=== PATIENT | female | born 1995 | race Caucasian/White ===

== ENCOUNTER 2018-04-23 15:53 | Outpatient (CLI) | payer OTHER, MEDICAID | END 2018-04-23 17:52 | disposition home or self-care (01) | LOC: OBT 15:53 → L-D 15:54 → OBT 17:52 | DX: O36.5930 Maternal care for other known or suspected poor fetal growth, third trimester, not applicable or unspecified (principal); Z3A.37 37 weeks gestation of pregnancy | CPT/HCPCS: 76815; 76818 ==